=== PATIENT | female | born 1980 | race Caucasian/White ===

== ENCOUNTER 2020-10-26 22:34 | Emergency (ER) | payer MEDICAID, SELFPAY ==
[2020-10-26 22:36] VITALS: BP 141/94; PULSE 74; RESP 19; TEMP 36.7; O2SAT 99; BMI 37.3
[2020-10-26 23:00] VITALS: BP 140/87; PULSE 72; O2SAT 98
--- NOTE | 2020-10-26 23:09 | HMH.EDHA ---
ED Disposition Clinical Impression: Headache Qualifiers: Headache type: unspecified Headache chronicity pattern: acute headache Intractability: not intractable Qualified Code(s): R51.9 - Headache, unspecified Disposition: Home, Self-Care Condition on Discharge: Good Instructions: DI for Headache Additional Instructions: see pcp for follow up Referrals: Jamarcus Egan [Primary Care Provider] - - Critical Care Critical Care Time: No Attestation: On 10/26/20, the high probability of a clinically significant, sudden or life threatening deterioration of the following system(s) required my full and direct attention, intervention and personal management. The time I documented below is in addition to time spent performing reported procedures but includes the following listed in this critical care notation. Medical Decision Making - Medical Records Medical records reviewed: Yes: I reviewed the patient's medical records. - [place]avian Inquiry Pt receiving controlled substance: No Vital Signs: 10/26/20 22:36 10/26/20 23:00 10/26/20 23:30 Temperature 98.0 F Temperature Source Oral Pulse Rate 72 63 Pulse Rate [Right] 74 Respiratory Rate 19 Blood Pressure 140/87 141/87 H Blood Pressure [Right Arm] 141/94 H Blood Pressure Mean [Right Arm] 109 Blood Pressure Source [Right Arm] Automatic Cuff 02 Sat by Pulse Oximetry 99 98 97 Oxygen Delivery Method Room Air 10/27/20 00:00 10/27/20 01:00 Temperature Temperature Source Pulse Rate 60 69 Pulse Rate [Right] Respiratory Rate Blood Pressure 126/84 136/86 Blood Pressure [Right Arm] Blood Pressure Mean [Right Arm] Blood Pressure Source [Right Arm] 02 Sat by Pulse Oximetry 97 99 Oxygen Delivery Method Room Air - Lab Data Lab results reviewed: Yes: I reviewed the patient's lab results. Lab Results 10/26/20 22:42: WBC 14.5 H, RBC 4.34, Hgb 12.3, Hct 36.8 L, MCV 84.7, MCH 28.2, MCHC 33.3, RDW 14.1, Plt Count 429 H, MPV 8.7, Neut % (Auto) 63.0, Lymph % (Auto) 30.3, [place] % (Auto) 3.6, Eos % (Auto) 2.5, Baso % (Auto) 0.7, Neut # (Auto) 9.1 H, Lymph # (Auto) 4.4, [place] # (Auto) 0.5, Eos # (Auto) 0.4, Baso # (Auto) 0.1, ESR 32 H 10/26/20 22:42: Sodium 143, Potassium 3.6, Chloride 108 H, Carbon Dioxide 26, Anion Gap 12.6, BUN 13, Creatinine 0.70, Estimated Creat Clear 175, Estimated GFR 94, Est GFR ( Amer) 113, Glucose 93, Calcium 8.8, Total Bilirubin 0.3, AST 31, ALT 39, Alkaline Phosphatase 124, C-Reactive Protein 21.2 H, Total Protein 7.5, Albumin 4.2, Globulin 3.3 H, Albumin/Globulin Ratio 1.3, Amylase 81, Lipase 182, Procalcitonin 0.068 10/26/20 22:45: Urine Color Yellow, Urine Appearance Sl cloudy, Urine pH 5.5, Ur Specific [place] >= 1.030, Urine Protein Negative, Urine Glucose (UA) Negative, Urine Ketones Negative, Urine Blood 2+, Urine Nitrate Negative, Urine Bilirubin Negative, Urine Urobilinogen 0.2, Ur Leukocyte Esterase Negative, Urine RBC Occasional, Urine WBC Occasional, Ur Squamous Epith Cells 5-10, Urine Bacteria 2+, Urine Mucus 2+ 10/26/20 22:45: Urine HCG, Qual Negative 10/27/20 00:59: SARS-CoV-2 (PCR) Not detected, Influenza A Untype (PCR) Not detected, Influenza Type B (PCR) Not detected Result diagrams: 10/26/20 22:42 10/26/20 22:42 Orders (Tests/Meds): ED MEDICATIONS Generic Name Dose Route Start Last Admin Trade Name Freq PRN Reason Stop Dose Admin Sodium Chloride 1,000 mls @ 999 mls/hr 10/26/20 23:30 10/26/20 23:26 Sod Chlor 0.9% 1000ml Bag IV 10/27/20 00:30 999 mls/hr .[id number] ANH Administration Discontinued Medications Generic Name Dose Route Start Last Admin Trade Name Freq PRN Reason Stop Dose Admin Diphenhydramine HCl 50 mg 10/27/20 01:00 10/27/20 01:12 Diphenhydramine 50mg/Ml Vial IV 10/27/20 01:01 50 mg ONCE ONE Administration Iopamidol 75 ml 10/27/20 00:56 10/27/20 00:57 Iopamidol-370 (76%);100ml Bottle IV 10/27/20 00:57 75 ml ONCE ONE Administration Ketorolac [place]
[2020-10-26 23:19] LABS: Microscopic, Urine URINE MICROSCOPIC (MICROSCOPIC)
[2020-10-26 23:24] LABS: Urine Pregnancy, HCG Qual. Negative (Negative)
[2020-10-26 23:25] LABS: Basophils # 0.1 K/mm3 (0-0.2); Basophils % 0.7 % (0.1-2.0); Eosinophils # 0.4 K/mm3 (0.0-0.4); Eosinophils % 2.5 % (0.1-12.0); Hematocrit 36.8 % (37.0-47.0); Hemoglobin 12.3 g/dL (12.2-16.2); Lymphocytes # 4.4 K/mm3 (0.7-4.5); Lymphocytes % 30.3 % (10-50); Mean Corpuscular HGB Conc 33.3 g/dL (31.8-35.4); Mean Corpuscular Hemoglobin 28.2 pg (27.0-31.2); Mean Corpuscular Volume 84.7 fl (81-99); Mean Platelet Volume 8.7 fl (7.4-10.4); Monocytes # 0.5 K/mm3 (0.1-1.0); Monocytes % 3.6 % (1.7-9.3); Neutrophils # 9.1 K/mm3 (1.8-7.8); Platelet Count 429 K/mm3 (142-424); Red Blood Count 4.34 M/mm3 (4.20-5.40); Red Cell Distribution Width 14.1 % (11.5-17.5); White Blood Count 14.5 K/mm3 (4.8-10.8)
[2020-10-26 23:27] LABS: Alanine Aminotransferase 39 U/L (12-78); Albumin Level 4.2 g/dl (3.5-5.0); Albumin/Globulin Ratio 1.3 (1.1-1.8); Alkaline Phosphatase 124 U/L (38-126); Amylase 81 U/L (30-110); Anion Gap 12.6 mEq/L (5-15); Aspartate Amino Transferase 31 U/L (14-36); Bilirubin,Total 0.3 mg/dl (0.2-1.3); Blood Urea Nitrogen 13 mg/dl (7-17); Calcium 8.8 mg/dl (8.4-10.2); Carbon Dioxide 26 mmol/L (22.0-30.0); Chloride 108 mmol/L (98-107); Creatinine Clearance Estimated 175 mL/min (50-200); Estimated Glomerular Filt Rate 94 ml/min (>60); GFR (African American) 113 ML/MIN (>60); Globulin 3.3 g/dL (1.3-3.2); Glucose 93 mg/dl (74-100); Lipase 182 U/L (23-300); Potassium 3.6 mmoL/L (3.5-5.1); Sodium 143 mmol/L (136-145); Total Protein,Serum 7.5 g/dl (6.3-8.2)
[2020-10-26 23:30] VITALS: BP 141/87; PULSE 63; O2SAT 97
[2020-10-26 23:33] LABS: C-Reactive Protein 21.2 mg/L (0-4)
[2020-10-26 23:35] LABS: Appearance,Urine SL CLOUDY (Clear); Bilirubin,Urine Negative (Negative); Blood, Urine 2+ (Negative); Color,Urine YELLOW (Yellow); Glucose,Urine (UA) Negative (Negative); Ketones,Urine Negative (Negative); Leukocyte Esterase,Urine Negative (Negative); Nitrate,Urine Negative (Negative); PH,Urine 5.5 (5.0-8.5); Protein,Urine Negative (Negative); Specific Gravity, Urine >= 1.030 (1.005-1.030); Urobilinogen,Urine 0.2 EU/dl (0.2)
[2020-10-26 23:37] LABS: Bacteria,Urine 2+ /lpf; Mucus,Urine 2+ /lpf; RBC,Urine Occasional #/hpf (0-3); WBC,Urine Occasional #/hpf (0-3)
[2020-10-26 23:46] LABS: Procalcitonin 0.068 ng/mL (0.0-2.0)
[2020-10-26 23:49] LABS: Erythrocyte Sedimentation Rate 32 mm/hr (0-20)
[2020-10-27] VITALS: BP 126/84; PULSE 60; O2SAT 97
--- NOTE | 2020-10-27 00:01 | XR_ITS ---
PROCEDURE INFORMATION: Exam: XR Chest Exam date and time: 10/27/2020 12:01 AM Age: 40 years old Clinical indication: Cough; Patient HX: Smoker TECHNIQUE: Imaging protocol: XR of the chest. Views: 2 views. COMPARISON: No relevant prior studies available. FINDINGS: Lungs: Unremarkable. No consolidation. Pleural spaces: Unremarkable. No pleural effusion. No pneumothorax. Heart/Mediastinum: Unremarkable. No cardiomegaly. Bones/joints: Unremarkable. IMPRESSION: No acute findings.
--- NOTE | 2020-10-27 00:01 | CT_ITS ---
PROCEDURE INFORMATION: Exam: CT Head Without Contrast Exam date and time: 10/27/2020 12:01 AM Age: 40 years old Clinical indication: Pain; Headache; Additional info: Vision changes headache 2 wk TECHNIQUE: Imaging protocol: Computed tomography of the head without contrast. Radiation optimization: All CT scans at this facility use at least one of these dose optimization techniques: automated exposure control; mA and/or kV adjustment per patient size (includes targeted exams where dose is matched to clinical indication); or iterative reconstruction. COMPARISON: No relevant prior studies available. FINDINGS: Brain: Normal. No hemorrhage. Unremarkable white matter. No mass effect. Cerebral ventricles: No ventriculomegaly. Paranasal sinuses: Minimal/mild mucosal disease of the right ethmoid air cells. Mastoid air cells: Visualized mastoid air cells are well aerated. Bones/joints: Unremarkable. No acute fracture. Soft tissues: Unremarkable. IMPRESSION: No acute intracranial abnormality.
--- NOTE | 2020-10-27 00:01 | CT_ITS ---
PROCEDURE INFORMATION: Exam: CT Abdomen And Pelvis With Contrast Exam date and time: 10/27/2020 12:01 AM Age: 40 years old Clinical indication: Abdominal pain; Localized; Patient HX: Lower mid abd pain with n/v/d for 2 weeks; Additional info: Vision changes headache 2 wk TECHNIQUE: Imaging protocol: Computed tomography of the abdomen and pelvis with contrast. Radiation optimization: All CT scans at this facility use at least one of these dose optimization techniques: automated exposure control; mA and/or kV adjustment per patient size (includes targeted exams where dose is matched to clinical indication); or iterative reconstruction. Contrast material: ISOVUE; Contrast volume: 75 ml; Contrast route: IV; COMPARISON: CR XR CHEST 2V 10/27/2020 12:22 AM FINDINGS: Liver: Normal. No mass. Gallbladder and bile ducts: Gallbladder is contracted. Pancreas: Normal. No ductal dilation. Spleen: Normal. No splenomegaly. Adrenal glands: Normal. No mass. Kidneys and ureters: Normal. No hydronephrosis. Stomach and bowel: Unremarkable. No obstruction. No mucosal thickening. Appendix: No evidence of appendicitis. Intraperitoneal space: Unremarkable. No free air. No significant fluid collection. Vasculature: Unremarkable. No abdominal aortic aneurysm. Lymph nodes: Unremarkable. No enlarged lymph nodes. Urinary bladder: Unremarkable as visualized. Reproductive: Unremarkable as visualized. Bones/joints: Unremarkable. No acute fracture. Soft tissues: Unremarkable. IMPRESSION: No acute intra-abdominal pathology
--- NOTE | 2020-10-27 00:29 | PC.NURSE ---
Pt to rad.
[2020-10-27 01:00] VITALS: BP 136/86; PULSE 69; O2SAT 99
[2020-10-27 01:18] LABS: Coronavirus 19, PCR Not Detected (NotDetected); Influenza A, PCR Not Detected (NotDetected); Influenza B, PCR Not Detected (NotDetected)
[2020-10-27 01:59] VITALS: BP 141/100; PULSE 93; RESP 20; TEMP 36.8; O2SAT 97
== END 2020-10-27 02:10 | disposition home or self-care (01) ==
PROVIDERS: Emergency Provider Emergency Medicine; PCP Pediatrics
DX: R51.9 Headache, unspecified (principal); R53.1 Weakness
CPT/HCPCS: 70450; 71046; 74177; 80053; 81001; 81025; 82150; 83690; 84145; 85025; 85651; 86140; 87086; 96365; 96375; 99284; Q9967; U0003